=== PATIENT | male | born 1975 | race Caucasian/White ===

== ENCOUNTER 2019-10-20 02:06 | Emergency (ER) | payer OTHER, SELFPAY ==
[2019-10-20 02:16] VITALS: BP 134/91; PULSE 75; RESP 18; TEMP 36.4; O2SAT 96
--- NOTE | 2019-10-20 03:57 | ED.DENTAL ---
HPI - Dental/Oral General Chief complaint: Dental/Oral Stated complaint: dental pain Time Seen by Provider: 10/20/19 03:57 Source: patient and family Mode of arrival: ambulatory Limitations: no limitations History of Present Illness HPI Narrative: Patient presents a 3-day history of worsening right lower molar pain at approximately 230. Patient has had some right mandibular swelling, no difficulty opening his mouth. No fever or chills. Patient reports radiation of pain to the right ear. No discharge from the ear or difficulty hearing. Patient has had no difficulty swallowing. He has a diffuse dental caries, has had history of numerous tooth infections. He states he will not see a dentist because he does not want to have his tooth extracted unless he is put to sleep. Patient is a daily smoker. He denies any neck pain, chest pain or vomiting. MD Complaint: tooth pain Location: Tooth # (30) Related Data Allergies Allergy/AdvReac Type Severity Reaction Status Date / Time morphine Allergy Unknown Verified 02/24/19 15:27 Review of Systems Review of Systems: Narrative: CONSTITUTIONAL: Denies fever, chills, or sweats. EYES: Denies visual changes, redness, or discharge. ENT: Denies rhinorrhea, congestion, sore throat, reports right ear otalgia CARDIOVASCULAR: Denies chest pain SKIN: Denies rash, no facial edema PMFSH Past Medical History Medical History (Updated 10/20/19 @ 04:28 by Maryam Bright MD) Arm fracture, left Dental caries Toothache Social History Social History (Updated 10/20/19 @ 04:29 by Maryam Bright MD) Smoking status: Current every day smoker Tobacco type: cigarettes Second hand tobacco smoke exposure: Yes Alcohol intake: never Substance use: current Substance use type: marijuana Gender identity (if verbalized by the patient): Male Exam Narrative: Exam Narrative: GENERAL: Well-appearing, well-nourished, and in no acute distress. HEAD: Normocephalic, atraumatic. EYES: PERRLA and EOMI. ENT: Nares clear, no rhinorrhea or epistaxis. Mucous membranes moist. No trismus. Uvula is midline. There is extensive dental caries, dental decay and breakdown of teeth. Molar 30 is tenderness along the gingival line, there is gingival erythema without evidence of abscess, no purulent drainage. Mild right mandibular edema without erythema or warmth. Right tympanic membrane occluded with cerumen, left tympanic membrane normal. NECK: Supple. No lymphadenopathy of the cervical chain. CHEST: Clear to auscultation. No respiratory distress. HEART: Regular rate and rhythm. No murmur heard. Normal peripheral pulses. ABDOMEN: Soft, nontender, nondistended, normal active bowel sounds. EXTREMITIES: Normal range of motion. No edema. SKIN: Warm, dry, no rash. NEURO: No focal deficits. Alert and oriented x3 Course Course Emergency Course: Patient's pain is consistent with dental caries. Patient has been seen numerous times at this facility for dental caries in the past. At the time of assessment there are no signs of systemic illness, no focal signs of space-occupying abscess or lesions, no signs of James angina or other concerning retropharyngeal infection. The patient is controlling his secretions well without signs of airway compromise. Patient is thought reasonable for outpatient follow-up with dental evaluation and will need close dental follow-up.. Patient given oral antibiotics and medication for analgesia. Vital Signs Vital signs: Vital Signs Temperature 36.4 C 10/20/19 02:16 Pulse Rate 75 10/20/19 02:16 Respiratory Rate 18 10/20/19 02:16 Blood Pressure 134/91 H 10/20/19 02:16 Pulse Oximetry 96 10/20/19 02:16 Temperature 36.4 C 10/20/19 02:16 Pulse Rate 75 10/20/19 02:16 Respiratory Rate 18 10/20/19 02:16 Blood Pressure 134/91 H 10/20/19 02:16 Pulse Oximetry 96 10/20/19 02:16 Discharge Plan Discharge Clinical Impression: Toothache, Dental caries P
[2019-10-20 04:27] VITALS: BP 129/90; PULSE 72; RESP 18; O2SAT 97
[2019-10-20] MEDS: PENICILLIN V POTASSIUM 250 MG TABLET 500 MG PO (04:39)
[2019-10-20 04:54] VITALS: BP 132/72; PULSE 88; RESP 18; O2SAT 98
== END 2019-10-20 04:56 | disposition home or self-care (01) ==
LOC: ANHED 04:32
PROVIDERS: Emergency Provider Emergency Medicine
DX: K02.9 Dental caries, unspecified (principal); F17.210 Nicotine dependence, cigarettes, uncomplicated
CPT/HCPCS: 99283; A9270

== ENCOUNTER 2020-05-15 13:09 | Emergency (ER) | payer OTHER, SELFPAY ==
[2020-05-15] VITALS (7 sets, daily range): BP systolic 122–132; BP diastolic 72–89; PULSE 80–99; RESP 18–19; TEMP 36.2–37; O2SAT 89–100
--- NOTE | ~2020-05-15 | US_ITS ---
EXAMINATION: US right upper quadrant DATE: 05/15/2020 17:06 INDICATION: Upper abdominal pain. TECHNIQUE: Multiple grayscale and Doppler ultrasound images of the abdomen were obtained. COMPARISON: None FINDINGS: The visualized portions of the head and body of the pancreas are normal. There is diffuse h epatic steatosis. No liver surface nodularity. There is normal flow in main portal vein. The gallblad lawanda is normal in size. No gallstones or gallbladder wall thickening. There was no sonographic Peterson sign. The common duct is normal and measures 3 mm. IMPRESSION: 1. Diffuse hepatic steatosis. Reviewed, dictated and finalized at location A.
[2020-05-15 14:53] LABS: Hematocrit 47.3 % (42.0-52.0); Hemoglobin 17.2 g/dL (14.0-18.0); Mean Corpuscular HGB Conc 36.4 g/dl (32-36); Mean Corpuscular Hemoglobin 30.9 pg (26-34); Mean Corpuscular Volume 84.9 fl (80-100); Mean Platelet Volume 12.6 fl (7.4-10.4); Platelet Count Result 102 k/mm3 (150-375); Red Blood Count 5.57 M/mm3 (4.6-6.20); Red Cell Distribution Width 12.5 % (11.5-14.5); White Blood Count 2.6 K/mm3 (4.5-10.0)
[2020-05-15 15:21] LABS: Alanine Aminotransferase 442 U/L (4-50); Albumin Level 4.2 g/dL (3.5-5.1); Alkaline Phosphatase 165 U/L (38-126); Anion Gap 9 mmol/L (8-16); Aspartate Amino Transferase 448 U/L (17-59); Bilirubin,Total 2.6 mg/dL (0.2-1.3); Blood Urea Nitrogen 22 mg/dL (9-20); Calcium 8.6 mg/dL (8.4-10.2); Carbon Dioxide 29 mmol/L (22-30); Chloride 97 mmol/L (98-107); Estimated CRCL calculation 53 ml/min; Estimated Glomerular Filt Rate 44; Glucose 122 mg/dL (75-110); Lipase 200 U/L (23-300); Potassium 3.7 mmol/L (3.4-5.0); Sodium 135 mmol/L (137-145)
[2020-05-15 15:22] LABS: Band Neutrophils Percent 30 % (0-6); Lymphocytes Absolute Manual 0.46 K/mm3 (1.1-4.5); Monocytes Percent Manual 4 % (3-9); Neutrophils Absolute Manual 2.02 K/mm3 (1.3-6.7); Neutrophils Percent Manual 48 % (46-73); Total Cells Counted 100
[2020-05-15 15:23] LABS: Platelet Estimate Decreased (Adequate)
--- NOTE | 2020-05-15 15:26 | ED.GENADULT ---
HPI - General Adult General Chief complaint: Nausea/Vomiting/Diarrhea Stated complaint: , n/v Time Seen by Provider: 05/15/20 14:32 History of Present Illness HPI narrative: Patient is a 45-year-old male who presents ER with nausea and vomiting. Patient reports he has been feeling unwell over the last 5 days. Has been having chills as well as shakes bot no fevers. He has been having persistent nausea and vomiting over the last couple of days and has kept down no food. He can drink soda but has difficulty drinking water or Gatorade. He is not taking medications for this. He has no known sick contacts. He did have himself swabbed for COVID yesterday but has not yet received the results. Related Data Allergies Allergy/AdvReac Type Severity Reaction Status Date / Time morphine Allergy Unknown Verified 02/24/19 15:27 Review of Systems Review of Systems: All systems reviewed & are unremarkable except as noted in HPI and below Constitutional: Constitutional: Reports chills, Denies fever(s) and Reports weakness ENT: Denies nasal congestion and Denies sore throat Cardiovascular: Cardiovascular: Denies chest pain, Denies rapid heart rate and Denies radiating jaw, neck or arm pain Respiratory: Respiratory: Denies cough and Denies dyspnea Gastrointestinal: Gastrointestinal: Denies abdominal pain, Reports diarrhea, Reports nausea and Reports vomiting PMFSH Past Medical History Medical History (Updated 05/15/20 @ 17:43 by Timothy Hurley MD) Arm fracture, left Dental caries Toothache Surgical History Surgical History (Updated 05/15/20 @ 15:35 by Timothy Hurley MD) No history of previous surgery Social History Social History (Updated 10/20/19 @ 04:29 by Maryam Bright MD) Smoking status: Current every day smoker Tobacco type: cigarettes Second hand tobacco smoke exposure: Yes Alcohol intake: never Substance use: current Substance use type: marijuana Gender identity (if verbalized by the patient): Male Exam Narrative: Exam Narrative: GENERAL: Uncomfortable-appearing, well-nourished, and in no acute distress. HEAD: Normocephalic, atraumatic. CHEST: Clear to auscultation. No respiratory distress. HEART: Regular rate and rhythm. Normal peripheral pulses. ABDOMEN: Soft, nontender, nondistended. EXTREMITIES: Normal range of motion. No edema. SKIN: Warm, dry, no rash. NEURO: Alert and oriented x3. PSYCH: Normal mood and affect. Course Course Emergency Course: Patient feels much better after antiemetics. He is able to tolerate oral fluid. Ultrasound shows fatty liver. Patient educated on his transaminitis. Hepatitis panel sent. Recommend follow-up with PCP. May need follow-up with GI doctor for further evaluation. Patient verbalized understanding. He had already removed his own IV had gotten dressed to leave. Vital Signs Vital signs: Vital Signs Temperature 98.6 F 05/15/20 13:12 Pulse Rate 88 05/15/20 13:12 Respiratory Rate 18 05/15/20 13:12 Blood Pressure 123/82 05/15/20 13:12 Pulse Oximetry 99 05/15/20 13:12 Temperature 97.1 F L 05/15/20 14:39 Pulse Rate 80 05/15/20 16:45 Respiratory Rate 18 05/15/20 16:45 Blood Pressure 131/89 05/15/20 16:45 Pulse Oximetry 99 05/15/20 16:45 Medical Decision Making Vital Signs Vital Signs: Vital Signs Temperature 98.6 F 05/15/20 13:12 Pulse Rate 88 05/15/20 13:12 Respiratory Rate 18 05/15/20 13:12 Blood Pressure 123/82 05/15/20 13:12 Pulse Oximetry 99 05/15/20 13:12 Temperature 97.1 F L 05/15/20 14:39 Pulse Rate 80 05/15/20 16:45 Respiratory Rate 18 05/15/20 16:45 Blood Pressure 131/89 05/15/20 16:45 Pulse Oximetry 99 05/15/20 16:45 Lab Data Result diagrams: 05/15/20 14:46 05/15/20 14:46 Labs: Lab Results 05/15/20 05/15/20 05/15/20 Range/Units 14:46 14:46 16:06 WBC 2.6 L (4.5-10.0) K/mm3 RBC 5.57 (4.6-6.20) M/mm3
[2020-05-15] MEDS: ONDANSETRON INJ 4 MG/2 ML VIAL IV PUSH (15:35)
[2020-05-15] MEDS: SODIUM CHLORIDE 0.9% IV 1,000 ML 999 ML IV CONT (15:35)
[2020-05-15 16:19] LABS: Add Urine Microscopic? YES; Appearance Urine Clear (Clear); Bacteria Urine Trace /hpf; Bilirubin Urine Negative (Negative); Blood Urine 1+ (Negative); Color Urine Yellow (Yellow); Glucose Urine UA Negative (Negative); Ketones Urine Negative (Negative); Leukocyte Esterase Ur Negative LEU/UL (Negative); Nitrate Urine Negative (Negative); Protein Urine 2+ mg/dL (Negative); RBC Urine 0-2 /hpf (0-2); Specific Grav Ur 1.013 (1.001-1.035); WBC Urine 0-3 /hpf
--- NOTE | 2020-05-15 16:42 | PC.NURSE ---
Orthostatics obtained. Pt states is feeling somewhat better, requesting po ice chips. Explained that at this time need to stay NPO pending ultrasound testing.
--- NOTE | 2020-05-15 17:09 | PC.NURSE ---
Pt heard to be yelling/grunting loudly from the room, when asked if I could help him, states my throat fucking hurts. I'm about to take all this all and put my head under the fucking sink and drink . Explained that we're waiting for U/S results, that drinking water at this time could make his stomach hurt worse or delay surgery if he needs it. Pt states I ain't got fucking gallstones! I'm gonna just get the fuck out of here . Dr. Hurley made aware.
--- NOTE | 2020-05-15 17:38 | PC.NURSE ---
Pt given water po per ok Dr. Hurley. Dr. Hurley at bedside to discuss plan of care. Pt has removed his own IV and is dressed.
== END 2020-05-15 17:54 | disposition home or self-care (01) ==
PROVIDERS: Emergency Provider Emergency Medicine
DX: R74.0 Nonspecific elevation of levels of transaminase and lactic acid dehydrogenase [LDH] (principal); K76.0 Fatty (change of) liver, not elsewhere classified; F17.210 Nicotine dependence, cigarettes, uncomplicated
CPT/HCPCS: 36415; 76705; 80053; 81001; 83690; 85025; 96361; 96374; 99284; J2405; J7030

== ENCOUNTER 2025-02-05 23:26 | Emergency (ER) | payer OTHER, SELFPAY ==
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
--- OUTSIDE RECORDS SUMMARY | 2025-02-05 23:28 | XMS_ITS | Clinical Summary ---
Author Organization [facility] Address [address] [place] [address] Care Team Providers Care Trial Court Judge Name Role Phone Unavailable Primary Care Provider Unavailabl e Source Comments [facility],non-owned Affiliates and Associated Physician Practices is amultiple site organization consisting of ambulatory clinics and hospital sitesin [place], [place], [place] and [place]. This disclosure is being madepursuant to the Care Everywhere program and may not contain all information available regarding this patient. Last updated 18.[facility] [employer] Allergies Active Allergy Reactions Criticality Noted Date Comments Morphine 05/13/2009 Medications * Be aware that medications may not be up to date on this document. Alwaysverify current medications with the patient. ondansetron, disintegrating, (ZOFRAN ODT) 4 MG tablet Take 1 tablet by mouth every 6 hours as needed for Nausea/Vomiti ng Allow tablet to dissolve on the tongue 14 tablet 05/17/2020 Active famotidine (PEPCID) 10 MG tablet Take 1 tablet by mouth once daily 30 tablet 05/17/2020 Active methylPREDNISol one (MEDROL DOSEPAK) 4 MG tablet Take by mouth as directed 21 Each 06/26/2021 Active Active Problems Problem Noted Date Diagnosed Date Injury, other and unspecified, knee, leg, ankle, and foot 05/25/2009 Social History Tobacco Use Types Packs/Day Years Used Date Smoking Tobacco: Every Day Cigarettes 2 20 Smokeless Tobacco: Never Alcohol Use Standard Drinks/Week Comments Yes 5 (1 standard drink = 0.6 oz pur e alcohol) Sex and Gender Information Value Date Recorded Sex Assigned at Not on file 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 Gender Identity Not on file Sexual Orientation Not on file Last Filed Vital Signs Vital Sign Reading Time Taken Comments Blood Pressure 138/76 06/26/2021 8:00 PM CDT Pulse 88 06/26/2021 8:00 PM CDT Temperature 36.4 C (97.6 F) 06/26/2021 7:26 PM CDT Respiratory Rate 16 06/26/2021 8:00 PM CDT Oxygen Saturation 98% 06/26/2021 8:00 PM CDT Inhaled Oxygen Concentration - - Weight 85.8 kg (189 lb 2.5 oz) 06/26/2021 7:26 P M CDT Height 180.3 cm (5' 11) 06/26/2021 7:26 PM CDT Body Mass Index 26.38 06/26/2021 7:26 PM CDT Plan of Treatment Health Maintenance Due Date Last Done Comments COLOGUARD (AGES 45-75) - COL ON CA SCREENING 1975 COLON MONITORING 1975 COLONOSCOPY - COLON CA SCREENING 1975 CT COLONOGRAPHY - COLON CA SCREENING 1975 Colorectal Cancer Screening 1975 FIT - COLON CA SCREENING 1975 FLEX SIG - COLON CA SCREENING 1975 LIPID TESTING 1975 HIV SCREENING 1990 HEPATITIS C SCREENING 04/13/1993 DTAP/TDAP/TD VACCINES (1 - Tdap) 1994 HEPATITIS B VACCINE (1 of 3 - 19+ 3-dose series) 1994 COVID-19 VACCINE (1 - 2023-2 5 season) 2024 DEPRESSION SCREENING 09/11/2024 ZOSTER VACCINE (1 of 2) 2025 INFLUENZA VACCINE (Season Ended) 2025 HIB VACCINE Aged Out No longer eligi ble based on patient's age to complete this topic HPV VACCINE Aged Out No longer eligi ble based on patient's age to complete this topic MENINGOCOCCAL (Group B) VACC INE SHARED DECISION-MAKING Aged Out No longer eligibl e based on patient's age to complete this topic MENINGOCOCCAL GROUPS A/C/Y/W VACCINE Aged Out No longer eligible b ased on patient's age to complete this topic Insurance [facility]
[2025-02-05 23:31] VITALS: BP 134/86; PULSE 79; RESP 18; TEMP 36.8; O2SAT 98
--- NOTE | 2025-02-05 23:37 | PC.NURSE ---
RN wiped off some dried blood and gave pt some ice out in triage at this time.
--- OUTSIDE RECORDS SUMMARY | 2025-02-06 01:15 | XMS_ITS | Clinical Summary ---
Author Organization [facility] Address [address] [place] [address] Care Team Providers Care Pot Room Supervisor Name Role Phone Unavailable Primary Care Provider Unavailabl e Source Comments [facility],non-owned Affiliates and Associated Physician Practices is amultiple site organization consisting of ambulatory clinics and hospital sitesin [place], [place], [place] and [place]. This disclosure is being madepursuant to the Care Everywhere program and may not contain all information available regarding this patient. 

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
[2025-02-06] MEDS: ACETAMINOPHEN 500 MG TABLET 1000 MG PO (02:13)
[2025-02-06] MEDS: LIDOCAINE, EPINEPHRINE, TETRACAINE VISCOUS SOLN 3 ML TOPICAL (02:13)
[2025-02-06] MEDS: TETANUS,DIPHTHERIA,AC PERTUSSIS ADULT (0.5 ML) BOOSTRIX IM (03:44)
[2025-02-06 04:22] VITALS: BP 123/81; PULSE 72; RESP 17; O2SAT 98
== END 2025-02-06 04:32 | disposition home or self-care (01) ==
PROVIDERS: Emergency Provider Student in an Organized Health Care Education/Training Program
DX: S02.2XXA Fracture of nasal bones, initial encounter for closed fracture (principal); S01.20XA Unspecified open wound of nose, initial encounter; Z23 Encounter for immunization; F17.210 Nicotine dependence, cigarettes, uncomplicated; V23.49XA Other motorcycle driver injured in collision with car, pick-up truck or van in traffic accident, initial encounter
CPT/HCPCS: 12011; 70450; 70486; 72125; 90471; 90715; 99284; A9270

== ENCOUNTER 2025-03-03 13:11 | Emergency (ER) | payer OTHER, SELFPAY ==
--- NOTE | ~2025-03-03 | XR_ITS ---
XR hip LT 2V w AP pelvis Ordering provider: Clarita Antonio PA-C History: . pain to SI and left hip; no injury . Comparison: None. FINDINGS: BONES: No acute fracture or dislocation. HIP JOINT SPACES: Normal. SACROILIAC JOINT SPACES/LUMBAR SPINE: The sacroiliac joint spaces shows left sacroiliitis. Normal vis ualized lower lumbar spine. PUBIC SYMPHYSIS: Normal. SOFT TISSUES: Normal. IMPRESSION: No acute osseous abnormality pelvis and left hip. Reviewed, dictated and finalized at location A.
[2025-03-03 13:14] VITALS: BP 155/91; PULSE 70; RESP 20; TEMP 36.3; O2SAT 99
[2025-03-03 15:24] VITALS: BP 137/96; PULSE 61; RESP 20; TEMP 36.3; O2SAT 100
--- NOTE | 2025-03-03 15:40 | ED.BACK ---
HPI - Back Pain/Injury General Chief Complaint: Back Pain/Injury Stated Complaint: L. Low back and L. hip pain Time Seen by Provider: 03/03/25 16:17 Focused HPI: 49 y/o M presents to the emergency department for left lower back pain and left hip pain for over a week. Patient denies injury or trauma. States the pain catches intermittently with certain positions and is sharp in nature. He states his pain is worse after he has been immobile for long period of time such as when he wakes up the morning but is better when he starts moving in the hip and back loosen up. He denies fever, saddle anesthesia, bowel or bladder incontinence, urinary retention, abdominal pain, IV drug use, use of steroids or immunosuppressants, surgeries or procedures to his back. He states he has had similar symptoms in the past usually they do not last this long. He took ibuprofen this morning with some improvement. GENERAL: Well-appearing, well-nourished, and in no acute distress. HEAD: Normocephalic, atraumatic. CHEST: Clear to auscultation. ?No respiratory distress. BACK: No midline thoracic or lumbar spinous tenderness, crepitus, step-offs or deformities. Tenderness to the left paraspinous muscles and left SI joint with no overlying skin changes or erythema. EXT: No tenderness or skin changes to the left hip with full active and passive range of motion. Extremity is pink, warm and dry. HEART: Regular rate and rhythm.? NEURO: ?Alert and oriented x3. No saddle anesthesia. Strength 5/5 in BLE, sensation is intact throughout Patient screened in triage and initial orders placed.? ?Additional care and disposition to be based upon?diagnostic testing and treatment. Related Data Allergies Allergy/AdvReac Type Severity Reaction Status Date / Time morphine Allergy Unknown Unknown Verified 03/03/25 13:17 Review of Systems Review of Systems: All systems reviewed & are unremarkable except as noted in HPI and below PMFSH Past Medical History Medical History Arm fracture, left Dental caries Toothache Surgical History Surgical History No history of previous surgery Social History Social History Smoking packs per day: 1 Smoking cigarettes per day: 20.0 Years smoked: 30 Smoking pack-years: 30.00 Smoking status: Current every day smoker Tobacco type: cigarettes Second hand tobacco smoke exposure: Yes Alcohol intake: current Substance use: current Substance use type: marijuana Other substance usage details: daily Living arrangements: with family Gender identity (if verbalized by the patient): Male Spiritual care concerns: No Exam Narrative: GENERAL: Well-appearing, well-nourished, and in no acute distress. HEAD: Normocephalic, atraumatic. CHEST: Clear to auscultation. ?No respiratory distress. BACK: No midline thoracic or lumbar spinous tenderness, crepitus, step-offs or deformities. Tenderness to the left paraspinous muscles and left SI joint with no overlying skin changes or erythema. EXT: No tenderness or skin changes to the left hip with full active and passive range of motion. Extremity is pink, warm and dry. DP pulse 2+. Sensation intact HEART: Regular rate and rhythm.? NEURO: ?Alert and oriented x3. No saddle anesthesia. Strength 5/5 in BLE, sensation is intact throughout Course Vital Signs Vital signs: Vital Signs Temperature 97.4 F L 03/03/25 13:14 Pulse Rate 70 03/03/25 13:14 Respiratory Rate 20 03/03/25 13:14 Blood Pressure 155/91 H 03/03/25 13:14 Pulse Oximetry 99 03/03/25 13:14 Oxygen Delivery Room Air 03/03/25 13:14 Temperature 97.3 F L 03/03/25 15:24 Pulse Rate 63 03/03/25 16:33 Respiratory Rate 20 03/03/25 16:33 Blood Pressure 147/109 H 03/03/25 16:33 Pulse Oximetry 99 03/03/25 16:33 Oxygen Delivery Room Air 03/03/25 13:14 MDM - Back Pain/Injury MDM Narrative Medical decision making narrative: 49-year-old male presents emergency department for left-sided back and hip pain for over a week. No injury or trauma but does endorse he has been sleeping on a couch for the past 2 months and states he believes this is making his pain worse. See HPI for further history. Vitals are stable. Patient is afebrile and nontoxic appearing. Exam is notable for the above. X-ray of the left hip shows sacroiliitis consistent with exam. There is otherwise no acute osseous abnormality in pelvis or left hip. Patient was updated on results. Will be started on naproxen for pain advised follow-up with PCP. Encouraged increase mobility, stretching, heating pads, strict ED return precautions. He is agreeable to plan verbalized understanding. Discharged in stable condition. Discharge Plan Discharge Clinical Impression: Acute left-sided back pain, Acute pain of left hip Patient Disposition: Home Condition: Stable Instructions: Antibiotic Form, Acute Low Back Pain (ED), Hip Pain (ED), Lower Back Exercises (ED) Additional Instructions: Use heating pads, take naproxen as needed for pain, make sure you are stretching and stay mobile. Follow-up closely with primary care provider. Return to the emergency department if you develop a fever, significantly worsening pain, numbness to her groin, you lose control of her bowel or bladder, or other concerning symptoms. Patient Language: Slovak Prescriptions: New naproxen 500 mg tablet 500 mg PO BID PRN (Reason: pain) Qty: 20 0RF No Action ibuprofen 800 mg tablet 800 mg PO TID PRN (Reason: pain) Qty: 30 0RF acetaminophen [Tylenol Extra Strength] 500 mg tablet 1,000 mg PO TID PRN (Reason: pain) Qty: 30 0RF Follow-up/Referrals: PHYSICIAN NOT ON STAFF,NONSTAFF [Non-Staff] - Clarita Antonio PA-C [Emergency Provider] - Fortunato Waller MD [Primary Care Provider] -
[2025-03-03 16:33] VITALS: BP 147/109; PULSE 63; RESP 20; O2SAT 99
[2025-03-03] MEDS: KETOROLAC 30 MG/ML VIAL (*BKC) IM (17:24)
== END 2025-03-03 17:37 | disposition home or self-care (01) ==
LOC: ANHED 17:11
PROVIDERS: Emergency Provider Physician Assistant; PCP Emergency Medicine
DX: M54.50 Low back pain, unspecified (principal); M25.552 Pain in left hip; F17.210 Nicotine dependence, cigarettes, uncomplicated; F12.90 Cannabis use, unspecified, uncomplicated
CPT/HCPCS: 73502; 96372; 99283; J1885